=== PATIENT | female | born 1995 | race African-American/Black ===

== ENCOUNTER 2020-07-25 12:47 | Outpatient (REF) | payer OTHER, SELFPAY | END 2020-07-25 12:48 | disposition home or self-care (01) | LOC: HO.LAB 12:47 | PROVIDERS: PCP Internal Medicine; Visit Provider Internal Medicine | DX: Z20.828 Contact with and (suspected) exposure to other viral communicable diseases (principal) | CPT/HCPCS: C9803; U0003 ==

== ENCOUNTER 2021-08-14 17:07 | Emergency (ER) | payer OTHER, SELFPAY ==
[2021-08-14 17:22] VITALS: BP 159/100; PULSE 95; RESP 18; TEMP 36.8; O2SAT 100; BMI 53.1
[2021-08-14 18:19] LABS: COVID-19 Test Positive (Negative); IDNOW Serial# 9DD0AD1C; Strep A Nucleic Acid Negative (Negative)
[2021-08-14 21:30] VITALS: BP 151/96; PULSE 100; RESP 22; TEMP 36.7; O2SAT 98
--- NOTE | 2021-08-14 22:00 | ED_ITS ---
HPI - URI/Sore Throat General Chief Complaint: Upper Respiratory Symptoms Stated Complaint: Flu like symptoms/Hives Time Seen by Provider: 08/14/21 22:00 Source: patient Mode of arrival: ambulatory Limitations: no limitations History of Present Illness HPI Narrative: This is a 26-year-old female past medical history hypertension presenting to the emergency department with nasal congestion, sore throat, ear discomfort x1 week. Patient tells me that the real reason she is here today is not because of those symptoms, but because around 3 am today she had hives. She took Benadryl, which made them go away. No hives at this time. However, she has an EpiPen which , she asked PCP for refill on this EpiPen and her PCP sent her to the emergency department for a refil. She tells me that the hives have resolved, she is not short of breath, nauseous or vomiting at this time. She tells me that she would like a refill for her EpiPen.No shortness of breath, chest pain, nausea, vomiting, diarrhea, weakness, dizziness,vision changes.Patient eating and drinking well. MD elicited complaint: nasal congestion Onset (ago): week(s) (1) Consistency: constant Severity: mild Able to tolerate fluids by mouth: Yes Exacerbating factors: nothing Relieving factors: nothing Associated symptoms: denies other symptoms Treatments prior to arrival: none Related Data Previous Rx's Medication Instructions Recorded epinephrine 0.3 mg/0.3 mL 0.3 mg (0.3 mL) IM Q4H PRN #2 ea 08/14/21 injection, auto-injector (EpiPen) Allergies Allergy/AdvReac Type Severity Reaction Status Date / Time No Known Allergies Allergy Verified 08/14/21 17:22 Review of Systems Review of Systems: Constitutional : positive Fever, positive Chills, positive fatigue, positive Malaise ENT/Mouth : positive sore throat, positive runny nose, positive ear pain Eyes: No Discharge Cardiovascular : No Chest Pain, No SOB Respiratory : No Cough, No Sputum Gastrointestinal : No Nausea, No Vomiting, No Diarrhea Genitourinary : No Dysuria, No Urinary Frequency Musculoskeletal : positive Myalgia Skin : No rash Neuro : No Headache Yes all other systems are reviewed and are negative PMFSH Past Medical History Attestation statement: The following information was validated with the patient. Source: old records reviewed and nursing notes reviewed Medical History Hypertension Social History Social History Advance Directives: No Advance Directives Information Provided: No Patient : No Physical Exam Vital Signs: Vital Signs: Last Vital Signs Temp 98.1 F 08/14/21 21:30 Pulse 100 08/14/21 21:30 Resp 22 H 08/14/21 21:30 BP 151/96 H 08/14/21 21:30 Pulse Ox 98 08/14/21 21:30 BMI result Body Mass Index 53.1 Vital signs are stable, patient is noted to be slightly hypertensive, and tachypneic however she is anxious. Appearance: Alert.? Oriented X3.? No acute distress.? Patient appears slightly anxious. Respirations nonlabored, no accessory muscle use. Head: Normocephalic, atraumatic, no step-offs or deformities Eyes: Pupils equal, round and reactive to light.? ENT: Pharynx normal.? Neck: Normal inspection.? Neck supple.? CVS: Normal heart rate and rhythm.? Pulses normal.? Respiratory: No respiratory distress.? Breath sounds normal.? Abdomen: Soft and nontender.? Skin: Skin warm and dry.? Normal skin color.? Normal skin turgor.? Extremities: No lower extremity edema.? No calf ttp. 5/5 strength to bilateral upper and lower extremities Back: No midline tenderness, no C-spine tenderness, full range of motion, no CVA tenderness bilaterally Neuro: Oriented X 3.? No motor deficit.? No sensory deficit. Course Reevaluation(s) Reevaluation #1: Patient is noted to be COVID positive.? Vital signs are stable however.? I have given patient strict return precautions.? I have educated on diagnosis and treatment plan.? I have given them red flag symptoms and have told him to return with new or worsening symptoms.? I have outlined these on their discharge. Unlikely that this is ACS, patient denies chest pain. Lungs are clear unlikely pneumonia. Patient's vital signs stable, patient is not tachycardic, tachypneic or hypoxic at this time, no calf tenderness to palpation, unlikely PE. Initially she was slighlty tachypnic secondary to anxiety. Time: 22:06 MDM - URI/Sore Throat MDM Narrative Medical decision making narrative: 2203 26 yo F pmhx htn presents to ED with covid like sx. PE benign Plan- covid test Medical Records Attestation: I reviewed the patient's medical records. Lab Data Attestation: I reviewed the patient's lab results. Labs: Lab Results 08/14/21 08/14/21 Range/Units 17:45 17:45 COVID-19 (AARON) Positive A (Negative) COVID-19 Clin Com See Note S. pyogenes GrpA MARCELLO Negative (Negative) Critical Care Time Critical Care Time Critical Care Time: No Discharge Plan Discharge Clinical Impression: COVID-19 Patient Disposition: Home, Self-Care Instructions: COVID-19 (Coronavirus Disease 2019) (ED) Additional Instructions: Take your medications as prescribed. If you were prescribed antibiotics today, it is important that you take your medication to their entirety, do not skip any doses, do not finish them early. Today you tested positive for COVID-19. Take Ibuprofen or Tylenol as needed for fevers or body aches. Quarantine for 7 days and ensure you wear a mask. After 7 days you should wear a mask for 3 days after that. Practice social distancing and good hand hygiene. Drink plenty of fluids. Follow-up with your primary care provider this week. Return to the emergency department with new or worsening symptoms. In case of emergency call 911 You can purchase a pulse oximeter from your local pharmacy or grocery store, and monitor your oxygen saturation if it goes below 94% you should return to the emergency department for further evaluation. I have sent an EpiPen to her pharmacy, please use as instructed and only use it and severe emergencies if you are feeling short of breath, or like you cannot breathe or like her throat is closing. If he use an EpiPen you must call 911 and be seen in the emergency department. Please follow-up with your liquefied petroleum gasfitter. If You Test Positive for COVID-19 (Isolate) Everyone, regardless of vaccination status. * Stay home for 5 days. * If you have no symptoms or your symptoms are resolving after 5 days, you can leave your house. * Continue to wear a mask around others for 5 additional days. If you have a fever, continue to stay home until your fever resolves. If You Were Exposed to Someone with COVID-19 (Quarantine) If you: Have been boosted OR Completed the primary series of Pfizer or Moderna vaccine within the last 6 months OR Completed the primary series of J&J vaccine within the last 2 months * Wear a mask around others for 10 days. * Test on day 5, if possible. If you develop symptoms get a test and stay home. If you: Completed the primary series of Pfizer or Moderna vaccine over 6?months ago and are not boosted OR Completed the primary series of J&J over 2 months ago and are not boosted OR Are unvaccinated * Stay home for 5 days. After that continue to wear a mask around others for 5 additional days. * If you can?t quarantine you must wear a mask for 10 days. * Test on day 5 if possible. If you develop symptoms get a test and stay home Prescriptions: New epinephrine [EpiPen] 0.3 mg/0.3 mL auto-injector 0.3 mg IM Q4H PRN (Reason: anaphylaxis) Qty: 2 RF: 0 Referrals: Physician,Unknown J [Primary Care Provider] - 2 days Stand Alone Forms: Work/School Release
== END 2021-08-14 22:32 | disposition home or self-care (01) ==
LOC: HO.ED 22:10
PROVIDERS: Emergency Provider Emergency Medicine
DX: U07.1 COVID-19 (principal); L50.9 Urticaria, unspecified; J02.9 Acute pharyngitis, unspecified; I10 Essential (primary) hypertension
CPT/HCPCS: 87635; 87651; 99283; 99284

== ENCOUNTER 2022-02-17 09:57 | Emergency (ER) | payer OTHER, SELFPAY ==
[2022-02-17 10:10] VITALS: BP 177/93; PULSE 85; RESP 18; TEMP 36.7; O2SAT 100; BMI 51.5
--- NOTE | 2022-02-17 12:32 | ED.GENADULT ---
HPI - General Adult General Chief complaint: Upper Respiratory Symptoms Stated complaint: sore throat body aches Time Seen by Provider: 02/17/22 11:24 Source: patient Mode of arrival: ambulatory Limitations: no limitations History of Present Illness HPI narrative: 27-year-old female history of tonsillitis presents to ED for sore throat and body pain for the past 3 days. Patient states this morning she tested negative for COVID, RSV and influenza. Patient denies any drooling, change in voice, neck swelling, chest pain, shortness of breath, coughing phlegm, or any recent dental work. Related Data Previous Rx's Medication Instructions Recorded epinephrine 0.3 mg/0.3 mL 0.3 mg (0.3 mL) IM Q4H PRN 08/14/21 injection, auto-injector (EpiPen) anaphylaxis #2 ea amoxicillin 875 mg-potassium 1 tab PO Q12H 10 days #20 tabs 02/17/22 clavulanate 125 mg tablet naproxen 500 mg tablet 500 mg PO BID PRN pain 10 days #20 02/17/22 tabs prednisone 20 mg tablet 40 mg PO DAILY 5 days #10 tabs 02/17/22 Allergies Allergy/AdvReac Type Severity Reaction Status Date / Time No Known Allergies Allergy Verified 08/14/21 17:22 Review of Systems Review of Systems: Sore throat and body aches Yes all other systems are reviewed and are negative [facility] Past Medical History Medical History Hypertension Social History Social History Advance Directives: No Advance Directives Information Provided: Yes Physical Exam ED Vital Signs: Vital Signs - 24 hr 02/17/22 10:10 Temperature 98.0 F Pulse Rate 85 Respiratory Rate 18 Blood Pressure 177/93 H Pulse Oximetry 100 Oxygen Delivery Method Room Air BMI result Body Mass Index 51.5 Const General: cooperative, healthy appearing, comfortable, no acute distress, well developed, alert, awake and Physically active Orientation/consciousness: oriented to time and patient oriented x3 HENMT Other: negative for signs of peritonsillar abscess Head: Yes normal to inspection, Yes No palpable skull fracture present, Yes normocephalic, Yes atraumatic and No abrasion Ears: hearing grossly normal bilaterally, external ears normal, TM's normal bilaterally, TM normal on the right, TM normal on the left, EAC's normal, mastoids normal and no periauricular adenopathy Throat: Yes abnormal tonsil ( left tonsil positive for exudates. Negative for signs of HEAD CONTROL CLERK), No uvula laterally displaced, No uvular edema and No cobblestoning Eyes General: appearance normal, both eyes and all related structures Neck Neck: Yes normal visual inspection, Yes full ROM, Yes no lymphadenopathy, Yes no meningeal signs, Yes trachea midline, Yes supple, No anterior neck swelling and No tender Chest Chest palpation & inspection: normal inspection of the chest and normal palpation of entire chest wall Resp Effort & Inspection: normal respiratory effort and able to speak in complete sentences Auscultation: clear to auscultation bilaterally Cardio Jugular venous distension: no JVD Heart sounds: S1 normal heart sound present and S2 normal heart sound present GI Inspection: Yes normal to inspection and No abdominal wall ecchymosis Palpation (GI): Soft to palpation, not firm, nontender, no guarding and not rigid General: No CVA tenderness and Yes no CVA tenderness Back/Spine/Pelvis Back: no CVA tenderness, No CVA tenderness and No back tenderness Skin General skin exam: no rashes or lesions noted and elasticity normal Neuro General: oriented to time, patient oriented x3, gait normal, tone normal and no meningeal signs Cranial nerves: Yes CN's II-XII intact bilaterally Extrem General: Yes normal to inspection and Yes full ROM Psych Appearance: grossly normal, well kempt and not disheveled Course Course Course Narrative: will order strep test. Reevaluation(s) Reevaluation #1: Patient's strep test came back negative. Due to history of tonsillitis will be discharged with antibiotics and will give steroids. Patient educated on mononuclosesis disease and informed possibilities she might have it and recommend no sport activities to prevent contact with the spleen for the next 2 weeks to prevent spleen rupture. Patient informed to follow-up primary care provider. Time: 13:12 Reevaluation #2: Patient called and informed that her mono test came back negative. Patient informed to continue taking her antibiotics and steroids. Time: 18:25 Medical Decision Making MDM Narrative Medical decision making narrative: Tonsillitis Lab Data Labs: Lab Results 02/17/22 02/17/22 Range/Units 12:19 13:32 Monoscreen Negative (Negative) S. pyogenes GrpA MARCELLO Negative (Negative) Discharge Plan Discharge Clinical Impression: Tonsillitis Patient Disposition: Home, Self-Care Instructions: Tonsillitis (ED) Additional Instructions: return to the ED immediately for any drooling, change in voice, inability to tolerate solid foods/liquids, inability to talk, jaw stiffness, chest pain, shortness of breath, fever, chills, weakness, dizziness, worsening sore throat, or any other concerning symptoms. Please follow up with PCP Prescriptions: New amoxicillin-pot clavulanate 875-125 mg tablet 1 tab PO Q12H 10 Days Qty: 20 0RF prednisone 20 mg tablet 40 mg PO DAILY 5 Days Qty: 10 0RF naproxen 500 mg tablet 500 mg PO BID PRN (Reason: pain) 10 Days Qty: 20 0RF No Action epinephrine [EpiPen] 0.3 mg/0.3 mL auto-injector 0.3 mg IM Q4H PRN (Reason: anaphylaxis) Qty: 2 0RF Referrals: Essence Dewey MD [Primary Care Provider] - ( Tonsillitis) Stand Alone Forms: Work/School Release Interventions: ED Discharge Assessment Last Done: 02/17/22 13:38 Discharge Date/Time: 02/17/22 13:39 Print Language: Hungarian
[2022-02-17 12:36] LABS: Strep A Nucleic Acid Negative (Negative)
[2022-02-17 14:37] LABS: Monotest Negative (Negative)
== END 2022-02-17 13:39 | disposition home or self-care (01) ==
PROVIDERS: Physician Assistant; Emergency Provider Student in an Organized Health Care Education/Training Program; PCP Internal Medicine
DX: J03.90 Acute tonsillitis, unspecified (principal); M79.10 Myalgia, unspecified site; Z20.822 Contact with and (suspected) exposure to COVID-19; Z79.899 Other long term (current) drug therapy
CPT/HCPCS: 36415; 86308; 87651; 99283

== ENCOUNTER 2025-07-14 01:47 | Emergency (ER) | payer OTHER, SELFPAY ==
--- NOTE | ~2025-07-14 | XR_ITS ---
CLINICAL HISTORY: pain Right knee, 4 views COMPARISON: None provided FINDINGS: No acute fracture. No dislocation. No effusion. Unremarkable soft tissues. IMPRESSION: No acute findings. This document has been electronically signed by: Ezequiel Hyde MD on 07/14/2025 04:34:28
[2025-07-14 02:02] VITALS: BP 118/78; PULSE 99; RESP 18; TEMP 36.6; O2SAT 98; BMI 43.1
--- OUTSIDE RECORDS SUMMARY | 2025-07-14 02:18 | XMS_ITS | Encounter Summary ---
Author Organization [facility] Prior to 06/03/2024 Address [address] [place] [address] Care Team Providers Care Post Adoption Coordinator Name Role Phone Cary Posada MD Primary Care Provider Essence Marquez MD Primary Care Provider [phone] Encounter Details Date Type Department Care Team Description 06/10/2019 [employer] Gun[employer] Spotter Report Medical Records [address] [place] [id number] Gonzalez Whitten MD Social History Tobacco Use Types Packs/Day Years Used Date Smoking Tobacco: Light Smoker Cigarettes Started: 04/02/2014 Smokeless Tobacco: Never Comments:social said can sto p on own Alcohol Use Standard Drinks/Week Comments Yes 1 (1 standard drink = 0.6 oz pur e alcohol) socially- twice a month Sex Assigned at Date Recorded Not on file Job Start Date Occupation Industry Not on file Not on file Not on file documented as of this encounter Plan of Treatment Not on file documented as of this encounter Visit Diagnoses Not on filedocumented in this encounter Care Teams Post Adoption Coordinator Relationship Specialty Start Date End Date Cary Posada MD PCP - General Internal Medicine 01/26/18 02/17/21 Essence Dewey MD [address] [place] [address] PCP - General Internal Medicine 02/18/21 documented as of this encounter
--- OUTSIDE RECORDS SUMMARY | 2025-07-14 02:18 | XMS_ITS | Encounter Summary ---
Author Organization [facility] Prior to 06/03/2024 Address [address] [place] [address] Care Team Providers Care Salsa Dance Instructor Name Role Phone Alma Delia Dowell DO Primary Care Pro vider Unavailable Cray Posada MD Primary Care Provider Unavail Essence Monaco MD Primary Care Provider [phone] Encounter Details Date Type Department Care Team Description 05/12/2017 Copy Center Specialist Report Medical Records [address] [place] [address] Darion Lafleur Social History Tobacco Use Types Packs/Day Years Used Date Smoking Tobacco: Light Smoker Cigarettes Started: 04/02/2014 Comments:social Alcohol Use Standard Drinks/Week Comments Yes 1 [...] on filedocumented in this encounter Care Teams Salsa Dance Instructor Relationship Specialty Start Date End Date Alma Delia Dowell DO PCP - General Internal Medicine 02/19/15 01/25/18 Cary Posada MD PCP - General Internal Medicine 01/26/18 02/17/21 Essence Dewey MD [address] [place] [address] PCP - General Internal Medicine 02/18/21 documented as of this encounter
--- OUTSIDE RECORDS SUMMARY | 2025-07-14 02:18 | XMS_ITS | Encounter Summary ---
Author Organization [facility] Address [address] [place] [address] Care Team Providers Care Cartoonist Special Effects Name Role Phone Essence Dewey MD Primary Care Provider [phone] Reason for Visit * Reason Onset Date Comments Med Refill 06/13/2025 Zepbound 15 MG Encounter Details Date Type Department Care Team (Late Contact Info) Description 06/13/2025 Telephone Bariatric Surgery - [address] [place] [phone] Evette Stringer MD [address] [place] [phone] Social History Tobacco Use Types Packs/Day Years Used Date Smoking Tobacco: Every Day Cigarettes Smokeless Tobacco: Current Alcohol Use Standard Drinks/Week Comments Yes 1 (1 standard drink = 0.6 oz pur e alcohol) Comments Unknown Sex and Gender Information Value Date Recorded Sex Assigned at Not on file Legal Sex Female 2:16 AM EST Gender Identity Not on file Sexual Orientation Not on file documented as of this encounter Progress Notes * Betina Duggan - 06/13/2025 10:38 AM EST Patient did well on Zepbound 15 mgs and would like a refill. If appropriate, please send script for Zepbound 15 mgs to their pharmacy. The patient does have a follow up in 07/06/2025 documented in this encounter Plan of Treatment Upcoming Encounters Date Type Department Care Team (Late st Contact Info) Description 01/25/2026 10:45 AM EDT Office Visit Bariatric Surgery - [place] [address] [facility] [address] [place] [address] Evette Stringer MD [address] [place] [phone] documented as of this encounter Visit Diagnoses Not on filedocumented in this encounter Care Teams Cartoonist Special Effects Relationship Specialty Start Date End Date Essence Dewey MD [address] [place] [address] PCP - General Internal Medicine 02/18/21 documented as of this encounter
--- OUTSIDE RECORDS SUMMARY | 2025-07-14 02:18 | XMS_ITS | Patient Health Record ---
Author Organization [facility] Address [address] [place] [address] Care Team Providers Care Water Manager Name Role Phone MIRELLA NOGUERA Unavailable [phone] Allergies No Known Allergies Reason For Referral No Information Social History Tobacco Use: Social History Observation Description Date Details (start date - stop date) Current Smoker NA - NA Social History Drugs/Alcohol: Social Info Question Answer Notes Drugs Have you used drugs other than those for medical reasons in the past 12 months? No Tobacco Use: Social Info Question Answer Notes Tobacco Use/Smoking Are you a current smoker How often do you smoke cigarettes? every day How many cigarettes a day do you smoke? 11-20 Are you interested in quitting? Ready to quit Additional Details Category Social Info Options Details Drugs/Alcohol: Do you smoke marijuana? De nies Do you drink alcohol? 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 Problem Essential hypertension (27190902) Essential (primary) hypertension (I10) Active confirmed Problem Morbid obesity (828067243) Morbid obesity (E66.01) Active confirmed Problem Body mass index 40+ - morbidly obese (630826591) Body mass index [BMI] 50.0-59.9, adult (Z68.43) Active confirmed Problem Gastroesophageal reflux disease with esophagitis (disorder) (602697041) Gastroesophageal reflux disease with esophagitis without hemorrhage (K21.00) Active confirmed Plan Of Treatment No Information Insurance Providers Payer Name Payer Address Payer Phone Subscriber Number Group Number Insured Name Patient Relationship to Insured Coverage Start Date Coverage End Date [employer] [address] [place] [phone] [id number] Haydee Alvarado Self - patient is the insured Medications Administered Medication Instructions Date of Administration Dosage Notes MICC B12 INJECTION 09/10/2020 1 MICC B12 INJECTION 06/20/2021 lot # [id number] MICC B12 INJECTION 07/16/2021 MICC B12 INJECTION 10/14/2021 Lot # [id number] MICC B12 INJECTION 02/11/2022 lot # [id number] Medical (General) History Medical History History ICD Code hypertension seasonal allergies gastroesophageal reflux disease (GERD) acid reflux Surgical History Surgery Date(Month/Year) wisdom teeth extraction
--- OUTSIDE RECORDS SUMMARY | 2025-07-14 02:18 | XMS_ITS | Encounter Summary ---
Author Organization [facility] Prior to 06/03/2024 Address [address] [place] [address] Care Team Providers Care Billet Straightener Name Role Phone Cary Posada MD Primary Care Provider Essence Marquez MD Primary Care Provider [phone] Encounter Details Date Type Department Care Team Description 02/09/2019 Release of Information Medical Records [address] [place] [address] Abstract, Provider Social History Tobacco Use Types Packs/Day Years [...] on filedocumented in this encounter Care Teams Billet Straightener Relationship Specialty Start Date End Date Cary Posada MD PCP - General Internal Medicine 01/26/18 02/17/21 Essence Dewey MD [address] [place] [address] PCP - General Internal Medicine 02/18/21 documented as of this encounter
--- OUTSIDE RECORDS SUMMARY | 2025-07-14 02:18 | XMS_ITS | Encounter Summary ---
Author Organization [facility] Prior to 06/03/2024 Address [address] [place] [address] Care Team Providers Care Gerentological Physiotherapist Name Role Phone Essence Dewey MD Primary Care Provider [phone] Reason for Visit * Reason Onset Date Comments Appointment-Internal Referral 10/31/2021 Encounter Details Date Type Department Care Team Description 10/31/2021 Telephone General Surgery - [address] [place] [phone] Essence Dewey MD [address] [place] [phone] Appointment-Internal Referral Social History Tobacco Use Types Packs/Day Years Used Date Smoking Tobacco: Every Day Cigarettes 0.3 Smokeless Tobacco: Current Comments:started age 16; 1-3 cigarettes daily Alcohol Use Standard Drinks/Week Comments Yes 1 (1 standard drink = 0.6 oz pur e alcohol) occas Sex Assigned at Date Recorded Not on file Job Start Date Occupation Industry Not on file Not on file Not on file documented as of this encounter Miscellaneous Notes * Telephone Encounter - Imani Bravo - 11/08/2021 4:35 PM EDT Referral # [id number] Myke 12 visits 11/28/21 - 11/26/22 * Telephone Encounter - Betina Duggan - 10/31/2021 12:51 PM EDT Request for a referral to a [facility] Specialist for a patient with a [facility] PCP. If patient does NOT have a [facility] PCP they must obtain a referral from their PCP before being seen-do not submit request to Referrals department-contact patient. Specialty patient is being referred to: General Surgery Name of Specialist patient is seeing: Dr. Stringer Reason/diagnosis for visit: Bariatric consult Date of appoinment: 11/28/21 If retro, date referral needs to start: Essence Dewey Payor: [facility] / Plan: [employer] $25 Twist [id number] / Product Type: DmailerO [id number] documented in this encounter Plan of Treatment Not on file documented as of this encounter Visit Diagnoses Not on filedocumented in this encounter Care Teams Gerentological Physiotherapist Relationship Specialty Start Date End Date Essence Dewey MD [address] [place] [id number] PCP - General Internal Medicine 02/18/21 documented as of this encounter
--- OUTSIDE RECORDS SUMMARY | 2025-07-14 02:18 | XMS_ITS | Encounter Summary ---
Author Organization [facility] Prior to 06/03/2024 Address [address] [place] [address] Care Team Providers Care No Bake Molder Name Role Phone Essence Dewey MD Primary Care Provider [phone] Reason for Visit * Reason Onset Date Comments physical exam 09/28/2023 Encounter Details Date Type Department Care Team Description 09/28/2023 Telephone Bariatric Surgery - [address] [place] [address] Berta Bryant, ,RDN,LDN physical exam Social History Tobacco Use Types Packs/Day Years [...] encounter Miscellaneous Notes * Telephone Encounter - Claire Anne - 09/28/2023 12:14 PM EST Physical printed from [employer] and it's on my printer - I will upload to [employer] when I return to the office. * Telephone Encounter - Berta Bryant MS,KERRYN,LDN - 09/28/2023 10:24 AM EST Pt states she had physical in September 2023 through [employer]. Are you able to access through [employer]? Thanks! documented in this encounter Plan of Treatment Not on file documented as of this encounter Visit Diagnoses Not on filedocumented in this encounter Care Teams No Bake Molder Relationship Specialty Start Date End Date Essence Dewey MD [address] [place] [id number] PCP - General Internal Medicine 02/18/21 documented as of this encounter
--- OUTSIDE RECORDS SUMMARY | 2025-07-14 02:18 | XMS_ITS | Encounter Summary ---
Author Organization Erin [facility] Prior to 06/03/2024 Address [address] [place] [address] Care Team Providers Care [employer] Teacher Name Role Phone Alma Delia Dowell DO Primary Care Pro vider Unavailable Cary Posada MD Primary Care Provider Essence Marquez MD Primary Care Provider [phone] Reason for Visit * Reason Onset Date Comments Lump 10/21/2016 on neck Encounter Details Date Type Department Care Team Description 10/21/2016 Telephone Adult Medicine [address] [address] Alma Delia Dowell DO Lump (on neck) Social History Tobacco Use Types Packs/Day Years Used Date Smoking Tobacco: Light Smoker Comments:social Alcohol Use Standard Drinks/Week Comments Yes 0 (1 standard drink = 0.6 oz pur e alcohol) socially Sex Assigned at Date Recorded Not on file Job Start Date Occupation Industry Not on file Not on file Not on file documented as of this encounter Miscellaneous Notes * Telephone Encounter - Jessy Uribe L.P.N. - 10/21/2016 10:19 AM EDT Pt thinks she has a swollen gland behind her ear Has a cold Apt booked * Telephone Encounter - Jessy Uribe L.P.N. - 10/21/2016 9:20 AM EDT Message left on vm to call office at [phone] * Telephone Encounter - eMg Russell - 10/21/2016 8:40 AM EDT Symptoms patient is presenting: Pt states the last time she came here, she had a lump on her ear. She's now sick and another lump appeared on her neck. She was told to come back if it happened again.Pt is at work and requests to be called after 10. If pain or injury related was it due to an accident at work or from a motor vehicle accident? NO If yes, gather 3rd green party insurance information Date of accident/Injury: How long has patient had these symptoms?: 2 weeks PCP: Alma Delia Davila Payor: [employer] FFS / Plan: FFS HMO $0 [place] [id number] / Product Type: MEDICAID RISK documented in this encounter Plan of Treatment Not on file documented as of this encounter Visit Diagnoses Not on filedocumented in this encounter Care Teams [employer] Teacher Relationship Specialty Start Date End Date Alma Delia Dowell DO PCP - General Internal Medicine 02/19/15 01/25/18 Cary Posada MD PCP - General Internal Medicine 01/26/18 02/17/21 Essence Dewey MD [address] [place] [phone] PCP - General Internal Medicine 02/18/21 documented as of this encounter
--- OUTSIDE RECORDS SUMMARY | 2025-07-14 02:19 | XMS_ITS | Clinical Summary ---
Author Organization [address] [facility] Address [address] [place] [address] Phone Care Team Providers Care Glass Vial Filler Name Role Phone Essence Dewey MD Primary Care Provider [phone] Allergies Active Allergy Reactions Criticality Noted Date Comments Amlodipine-Benazepril Headache 07/21/2024 Cat Dander 07/21/2024 Dog Dander 07/21/2024 Grass Pollen 07/21/2024 House Dust 07/21/2024 Mold 07/21/2024 Other Headache Low 08/28/2020 Amlodipine Kdc: Red Dye+Amlodipine+Benazepril+Bril liant Blue Fcf Headache and nausea Ragweed 07/21/2024 Medications buPROPion XL (WELLBUTRIN XL) 150 mg 24 hr tablet Take 1 Tablet by mouth every morning for 30 days. 3 Active cetirizine (ZyrTEC) 10 mg capsule Take 10 mg by mouth daily. 5 Active cholecalciferol (VITAMIN D-3) 1,250 mcg (50,000 unit) capsule Take 1 Capsule by mouth once a week. 2 Active dapsone (ACZONE) 5 % topical gel Apply pea size amount BID 1 Active fluticasone propionate (FLONASE) 50 mcg/actuation nasal spray 2 Sprays by Each Nare route daily. Active norethindrone (ANAMARIA,AMBIKA,H ECTOR,MICRONOR ) 0.35 mg tablet Take 1 Tablet by mouth daily. 2 Active sulfacetamide sodium 10 % cleanser Wash face 1 x daily 12/01/202 1 Active multivitamin with minerals tabletIndicatio ns:Weight loss Take 1 tablet by mouth 1 (one) time each day. 30 tablet 11 5 02/09/20 26 Active multivitamin-mi u-nkun-ER-vit K (Bariatric Multivitamins) 45 mg iron- 800 mcg-120 mcg capsuleIndicati ons:Weight loss Take 1 capsule by mouth 1 (one) time each day. 90 capsule 1 5 09/04/19 26 Active tirzepatide, weight loss, (Zepbound) 15 mg/0.5 mL injectionIndica tions:Class 3 severe obesity due to excess calories with body mass index (BMI) of 40.0 to 44.9 in adult, unspecified whether serious comorbidity present (CMS/HCC V24, CMS/HCC V28) Inject 0.5 mL (15 mg total) under the skin every 7 (seven) days. 2 mL 5 5 01/03/20 26 Active minoxidiL (Rogaine) 2 % external solutionIndicat ions:Weight loss Apply topically 2 (two) times a day. 60 mL 2 5 07/06/20 26 Active ergocalciferol (VITAMIN D-2) 1,250 mcg (50,000 unit) capsuleIndicati ons:Vitamin D deficiency Take 1 capsule (50,000 Units total) by mouth 1 (one) time per week for 12 doses. 12 each 5 09/22/19 26 Active minoxidiL (Rogaine) 2 % external solutionIndicat ions:Weight loss Apply topically 2 (two) times a day. 60 mL 5 07/06/20 25 Discontinu ed(Reorder ) tirzepatide, weight loss, (Zepbound) 15 mg/0.5 mL injection Inject 0.5 mL (15 mg total) under the skin every 7 (seven) days. 2 mL 5 06/17/20 25 Discontinu ed(Reorder ) tirzepatide, weight loss, (Zepbound) 15 mg/0.5 mL injectionIndica tions:Class 3 severe obesity due to excess calories with body mass index (BMI) of 50.0 to 59.9 in adult, unspecified whether serious comorbidity present (CMS/HCC V24, CMS/HCC V28) Inject 0.5 mL (15 mg total) under the skin every 7 (seven) days. 2 mL 5 5 07/06/20 25 Discontinu ed(Reorder ) Active Problems Problem Noted Date Diagnosed Date Class 3 severe obesity due t o excess calories with body mass index (BMI) of 50.0 to 59.9 in adult 05/03/2024 Hirsutism 09/19/2020 PCOS (polycystic ovarian syndrome) 09/19/2020 Proteinuria 09/10/2020 Hypertension 09/03/2020 COVID-19 virus infection 07/23/2020 Overview (05/03/2024): 07/2020 per patient Urticaria 07/23/2020 Encounters Date Type Department Care Team Description 07/06/2025 4:15 PM EST Office Visit Bariatric Surgery [address] [address] Evette Stringer MD Class 3 severe obesity due to excess calories with body mass index (BMI) of 40.0 to 44.9 in adult, unspecified whether serious comorbidity present (CMS/HCC V24, CMS/HCC V28) (Primary Dx); Class 3 severe obesity due to excess calories with body mass index (BMI) of 50.0 to 59.9 in adult, unspecified whether serious comorbidity present (CMS/HCC V24, CMS/HCC V28); Weight loss; Vitamin D deficiency 07/03/2025 9:45 AM EST Lab Draw Station - [address] [place] [address] [address] [place] [phone] Weight loss 06/13/2025 Telephone Bariatric Surgery [address] [phone] Evette Stringer MD 05/15/2025 Telephone Bariatric Surgery [address] [phone] Evette Stringer MD from Last 3 Months Immunizations Immunization Administration Dates Next Due DTP 1996,1996 DTaP (Infanrix) 6wks to less than 7yo 12/16/2000 ,05/18/1997,1996 ZJaE-QIP-XMB (Pentacel) 2mo to less than 5yo 05/18/1997,1996,1996,04/14 HPV, Quadrivalent 04/24/2008,12/20/2007,10/20/19 08 Hepatitis B Pediatric (Enger ix B; Recombivax HB) to less than 20 yo 1996,1996,1996 MMR, measles mumps and rubel la Live (Priorix; M-M-R II) 12mo and older 12/16/2000,02/24/1997 Meningococcal MCV4P 10/15/2012,10/20/2007 Moderna SARS-CoV-2 COVID-19, mRNA, LNP-S, preservative free 01/24/2021 Tdap Tetanus diptheria acell ular pertussis (Boostrix; Adacel) 7yo and older 01/31/2016,10/20/2007 Varicella live (Varivax) 12m o and older 10/20/2007,02/14/1999 Surgical History Surgery Date Site/Laterality Comments WISDOM TOOTH EXTRACTION PROCEDURE: HISTORICAL WISDOM TEETH EXTRACTION Medical History Medical History Date Comments Morbid obesity ([facility]/HCC V24, [facility] V28) 04/05/20 15 DX:Morbid obesity (HCC) Iron deficiency anemia DX:Iron d eficiency anemia Family History Medical History Relation Name Comments Hypertension Father kidney disease Diabetes Maternal Grandmother Hyperlipidemia Mother HLD Hypertension Sister x 2 Relation Name Status Comments Brother x 1 Alive Father Alive Maternal Grandfather Maternal Grandmother Alive Mother Alive Paternal Grandfather Alive Paternal Grandmother Alive Sister x 2 Alive Social History Tobacco Use Types Packs/Day Years [...] on file Sexual Orientation Not on file Last Filed Vital Signs Vital Sign Reading Time Taken Comments Blood Pressure 128/83 07/06/2025 4:16 PM EST Pulse 92 07/06/2025 4:16 PM EST Temperature 36.6 C (97.8 F) 07/06/2025 4:16 PM EST Respiratory Rate - - Oxygen Saturation - - Inhaled Oxygen Concentration - - Weight 118 kg (260 lb) 07/06/2025 4:16 PM EST Height 162.6 cm (5' 4 ) 07/06/2025 4:16 PM EST Body Mass Index 44.63 07/06/2025 4:16 PM EST Plan of Treatment Upcoming Encounters Date Type Department Care Team (Late st Contact Info) Description 01/25/2026 10:45 AM EDT Office Visit Bariatric Surgery - [address] [place] [address] Evette Stringer MD [address] [place] [phone] Health Maintenance Due Date Last Done Comments Pneumococcal Vaccine: Pediatrics (0 to 5 Years) and At-Risk Patients (6 to 49 Years) (1 of 2 - PCV) 02/11/2015 Cervical Cancer Screening: Pap Smear 03/08/2022 03/08/2019, 03/08/2019 Social Influencers of Health Screening 07/12/2022 Hypertension/CHF/CAD Annual BMP Blood Test 01/14/2023 01/14/2022 Depression Screening 08/03/2024 05/21/2023 COVID-19 Vaccine ( - season) 2025 02/21/2021, 01/24/2021 Influenza Vaccine (#1) 2025 DTaP,Tdap,and Td Vaccines (8 - Td or Tdap) 01/30/2026 01/31/2016, 10/20/2007, 12/16/2000, Additional history exists Cholesterol Screening (Lipid Panel) 01/14/2027 01/14/2022 RSV Immunization Adult Patients (1 - 1-dose 75+ series) 02/11/2071 Hepatitis B Vaccines Completed 1996, 1996, 1996 HIB Vaccines Completed 05/18/1997, 08/04, 1996, Additional history exists IPV Vaccines Completed 05/18/1997, 08/04, 1996, Additional history exists MMR Vaccines Completed 12/16/2000, 02/24/1997 Varicella Vaccines Completed 10/20/2007, 02/14/1999 HPV Vaccines Completed 04/24/2008, 12/01, 10/20/2007 Meningococcal ACWY Vaccine Completed 10/15/2012, HIV Screening Completed 08/27/2020 Hepatitis C Screening Completed 08/27/2020 Hepatitis A Vaccines Aged Out No long er eligible based on patient's age to complete this topic Meningococcal B Vaccine Aged Out No l onger eligible based on patient's age to complete this topic RSV Immunization Patients Under 20 months Aged Out No longer eligible based on patient's age to complete this topic Procedures Procedure Name Priority Date/Time Associated Diagnosis Comments ALBUMIN Routine 07/03/2025 9:45 AM EST Weight loss VITAMIN B12 Routine 07/03/2025 9:45 AM EST Weight loss IRON AND TIBC Routine 07/03/2025 9:45 AM EST Weight loss VITAMIN D 25 HYDROXY Routine 07/03/2025 9:45 AM EST Weight loss DEPRESSION SCREENING Routine 05/21/2023 ANNUAL BMP BLOOD TEST Routine 01/14/2022 LIPID PANEL Routine 01/14/2022 HEPATITIS C SCREENING Routine 08/27/2020 HIV SCREENING Routine 08/27/2020 PAP SMEAR Routine 03/08/2019 from Last 3 Months or Most Recently Relevant to Health Maintenance Results * Iron and TIBC (07/03/2025 9:45 AM EST) Iron 88 40 - 150 mcg/dL 07/03/2025 2:49 PM EST [facility] TIBC 275 250 - 450 mcg/dL 07/03/2025 2:49 PM EST [facility] Iron Saturation 32 15 - 50 % 2:49 PM EST [facility] Blood Venous blood specimen / Unknown Venipuncture / Unknown 07/03/2025 9:45 AM EST 07/03/2025 9:45 AM EST us Evette Stringer MD LAB BLOOD ORDERABLES Final R esult Performing Organization Address City/[facility]/ZIP Co de Phone Number [facility] [address] [place] [address], [place] [phone] * (ABNORMAL) Vitamin D 25 hydroxy (07/03/2025 9:45 AM EST) Vit D, 25-Hydroxy 26.5(L) 30.0 - 80.0 ng/mL 07/03/2025 2:54 PM EST [facility] Blood Venous blood specimen / Unknown Venipuncture / Unknown 07/03/2025 9:45 AM EST 07/03/2025 9:45 AM EST us Evette Stringer MD LAB BLOOD ORDERABLES Final R esult Performing Organization Address City/[facility]/ZIP Co de Phone Number [facility] [address] [place] [address], [place] [phone] * Vitamin B12 (07/03/2025 9:45 AM EST) Vitamin B-12 428 211 - 911 pcg/mL 07/03/2025 2:56 PM EST [facility] Blood Venous blood specimen / Unknown Venipuncture / Unknown 07/03/2025 9:45 AM EST 07/03/2025 9:45 AM EST us Evette Stringer MD LAB BLOOD ORDERABLES Final R esult [facility] [address] [place] [address], [place] [phone] * Albumin (07/03/2025 9:45 AM EST) [facility] Albumin 4.3 3.2 - 5.0 g/dL 07/03/2025 2:49 PM EST [facility] Blood Venous blood specimen / Unknown Venipuncture / Unknown 07/03/2025 9:45 AM EST 07/03/2025 9:45 AM EST Evette Stringer MD LAB BLOOD ORDERABLES Final R esult Performing Organization Address City/State/[facility] Co de Phone Number [facility] [address] [place] [address], [place] [phone] * Depression Screening (05/21/2023) [facility] Depression Screening Abstracted [facility] Provider HEALTH MAINTENANCE Final Result * Annual BMP Blood Test (01/14/2022) [facility] Annual BMP Blood Test Abstracted [facility] Provider HEALTH MAINTENANCE Final Result * Lipid panel (01/14/2022) [facility] LDL/HDL Ratio 3 0 - 4 Triglycerides 112 0 - 150 mg/dL Cholesterol 184 0 - 200 mg/dL HDL 73 >=40 mg/dL LDL Cholesterol 89 0 - 100 mg/dL Blood Venous blood specimen / Unknown Historical Provider LAB BLOOD ORDERABLES Ale l Result * HIV Screening (08/27/2020) [facility] HIV Screening Abstracted [facility] Provider HEALTH MAINTENANCE Final Result * Hepatitis C Screening (08/27/2020) [facility] Hepatitis C Screening Abstracted Historical Provider HEALTH MAINTENANCE Final Result * Pap smear (03/08/2019) 03/08/2019 Narrative HISTORICAL TESTING LAB RESULTING AGENCY - 03/10/2019 5:00 PM EDT [id number] THINPREP PAP, IMAGED: NEGATIVE FOR SQUAMOUS INTRAEPITHELIAL LESION AND MALIGNANCY . JOHNNY VOSS , JEANMARIE(ASCP) (CASE ELECTRONICALLY SIGNED 03 10 2019) ADEQUACY: SATISFACTORY ENDOCERVICAL/TRANSFORMATION ZONE COMPONENT PRESENT. SOURCE: THINPREP PAP HPV IF ASCUS, CERVICAL, IMAGED CLINICAL INFORMATION: HPV IF DIAGNOSIS OF ASCUS. PAP HX NEG, Z12.4 us Pablo Aguilera CNM LAB CYTOLOGY ORDERABLES Final Result HISTORICAL TESTING LAB RESULTING AGENCY from Last 3 Months or Most Recently Relevant to Health Maintenance Insurance [facility] Care Teams Glass Vial Filler Relationship Specialty Start Date End Date Essence Dewey MD [address] [place] [address] PCP - General Internal Medicine 02/18/21
--- OUTSIDE RECORDS SUMMARY | 2025-07-14 02:19 | XMS_ITS | Encounter Summary ---
Author Organization [facility] Prior to 06/03/2024 Address [address] [place] [address] Care Team Providers Care Cement Cutter Name Role Phone Cary Posada MD Primary Care Provider Essence Marquez MD Primary Care Provider [phone] Encounter Details Date Type Department Care Team Description 10/26/2020 [place] [facility] [address] [address] Marquita Santamaria PA-C Social History Tobacco Use Types Packs/Day Years Used Date Smoking Tobacco: Every Day Cigarettes Smokeless Tobacco: Current Comments:started age 16; 1-3 cigarettes daily Alcohol Use Standard Drinks/Week Comments Yes 1 (1 standard drink = 0.6 oz pur e alcohol) Sex Assigned at Date Recorded Not on file Job Start Date Occupation Industry Not on file Not on file Not on file COVID-19 Exposure Response Date Recorded In the last month, have you been in contact with someone who was confirmed or suspected to have Coronavirus / COVID-19? No / Unsure 10/29/2020 1:19 PM EDT documented as of this encounter Plan of Treatment Not on file documented as of this encounter Visit Diagnoses Not on filedocumented in this encounter Care Teams Cement Cutter Relationship Specialty Start Date End Date Cary Posada MD PCP - General Internal Medicine 01/26/18 02/17/21 Essence Dewey MD [address] [place] [phone] PCP - General Internal Medicine 02/18/21 documented as of this encounter
--- OUTSIDE RECORDS SUMMARY | 2025-07-14 02:19 | XMS_ITS | Encounter Summary ---
Author Organization Erin [employer] [facility] Prior to 06/03/2024 Address [address] [place] [address] Care Team Providers Care Belt Notcher Name Role Phone Cary Posada MD Primary Care Provider Essence Marquez MD Primary Care Provider [phone] Encounter Details Date Type Department Care Team Description 11/28/2019 Pt. Non Urgent Medical Question BLEACH TESTER - [address] [address] Pablo Aguilera CNM [address] [place] [address] Social History Tobacco Use Types Packs/Day Years Used Date Smoking Tobacco: Light Smoker Cigarettes Started: 04/02/2014 Smokeless Tobacco: Never Comments:1-2 cigarettes ruben y Alcohol Use Standard Drinks/Week Comments Yes 1 (1 standard drink = 0.6 oz pur e alcohol) socially- twice a month Sex Assigned at Date Recorded Not on file Job Start Date Occupation Industry Not on file Not on file Not on file documented as of this encounter Miscellaneous Notes * Telephone Encounter - Yumiko Serrato R.N. - 11/28/2019 4:40 PM EDTFrom: Haydee Alvarado To: Pablo Aguilera CNM Sent: 11/28/2019 4:35 PM EDT Subject: Possible Yeast infection Hi Doc , I have had yeast infection before a couple times , I'm very red and itchy and burning downin my vaginal area , I don't if you can send a prescription in or I can come in .. please reach back documented in this encounter Plan of Treatment Not on file documented as of this encounter Visit Diagnoses Not on filedocumented in this encounter Care Teams Belt Notcher Relationship Specialty Start Date End Date Cary Posada MD PCP - General Internal Medicine 01/26/18 02/17/21 Essence Dewey MD [address] [place] [phone] PCP - General Internal Medicine 02/18/21 documented as of this encounter
--- OUTSIDE RECORDS SUMMARY | 2025-07-14 02:19 | XMS_ITS | Encounter Summary ---
Author Organization Erin [employer] [facility] Prior to 06/03/2024 Address [address] [place] [address] Care Team Providers Care Timber Incisor Operator Name Role Phone Alma Delia Dowell DO Primary Care Pro vider Unavailable Cary Posada MD Primary Care Provider Unavail Essence Monaco MD Primary Care Provider [phone] Encounter Details Date Type Department Care Team Description 03/27/2015 Release of Information Medical Records [address] [place] [id number] Abstract, Provider Social History Tobacco Use Types Packs/Day Years Used Date Smoking Tobacco: Never Alcohol Use Standard Drinks/Week Comments Not Asked 0 (1 standard drink = 0.6 oz pur e alcohol) Sex Assigned at Date Recorded Not on file Job Start Date Occupation Industry Not on file Not on file Not on file documented as of this encounter Plan of Treatment Not on file documented as of this encounter Visit Diagnoses Not on filedocumented in this encounter Care Teams Timber Incisor Operator Relationship Specialty Start Date End Date Alma Delia Dowell DO PCP - General Internal Medicine 02/19/15 01/25/18 Cary Posada MD PCP - General Internal Medicine 01/26/18 02/17/21 Essence Dewey MD [address] [place] [phone] PCP - General Internal Medicine 02/18/21 documented as of this encounter
--- OUTSIDE RECORDS SUMMARY | 2025-07-14 02:19 | XMS_ITS ---
Author Name [facility] Organization Unknown Care Team Organization Name Specialty Phone Email Start Date End Da gage [facility] Cary Sanchez Primary Care 06/10/2022 024
--- OUTSIDE RECORDS SUMMARY | 2025-07-14 02:19 | XMS_ITS | Encounter Summary ---
Author Organization [facility] Prior to 06/03/2024 Address [address] [place] [address] Care Team Providers Care Cognos Tm1 Developer Name Role Phone Cary Posada MD Primary Care Provider Essence Marquez MD Primary Care Provider [phone] Encounter Details Date Type Department Care Team Description 10/30/2020 Pt. Non Urgent Medical Question [facility] [place] [address] [place] [address] Lyn Nunes PA-C [address] [place] [address] Social History Tobacco Use Types Packs/Day Years [...] have Coronavirus / COVID-19? No / Unsure 11/01/2020 11:01 AM EDT documented as of this encounter Miscellaneous Notes * Telephone Encounter - Jaylene Vernon M.A. - 10/30/2020 1:50 PM EDTFrom: Haydee Alvarado To: Lyn Nunes PA-C Sent: 10/30/2020 1:14 PM EDT Subject: Question regarding ULTRASOUND OF PELVIS I have a question about ULTRASOUND OF PELVIS resulted on 10/29/20, 6:13 PM. Is there is anything we can do about the cyst because I'm in pain documented in this encounter Plan of Treatment Not on file documented as of this encounter Visit Diagnoses Not on filedocumented in this encounter Care Teams C[employer]os Tm1 Developer Relationship Specialty Start Date End Date Cary Posada MD PCP - General Internal Medicine 01/26/18 02/17/21 Essence Dewey MD [address] [place] [address] PCP - General Internal Medicine 02/18/21 documented as of this encounter
--- OUTSIDE RECORDS SUMMARY | 2025-07-14 02:19 | XMS_ITS | Encounter Summary ---
Author Organization [facility] Prior to 06/03/2024 Address [address] [place] [address] Care Team Providers Care Software Systems Engineer Name Role Phone Cary Posada MD Primary Care Provider Essence Marquez MD Primary Care Provider [phone] Encounter Details Date Type Department Care Team Description 01/08/2020 Pt. Non Urgent Medical Question HOTEL FRONT OFFICE MANAGER - [address] [address] Pablo Aguilera CNM [address] [place] [address] Social History Tobacco Use Types Packs/Day Years [...] Telephone Encounter - Yumiko Serrato R.N. - 01/09/2020 8:24 AM EDTFrom: Haydee Alvarado To: Pablo Aguilera CNM Sent: 01/08/2020 9:50 AM EDT Subject: Periods Hey , my periods been lasting very long again and wanted to know what we can do ? Or if I can come for a appointment? documented in this encounter Plan of Treatment Not on file documented as of this encounter Visit Diagnoses Not on filedocumented in this encounter Care Teams Software Systems Engineer Relationship Specialty Start Date End Date Cary Posada MD PCP - General Internal Medicine 01/26/18 02/17/21 Essence Dewey MD [address] [place], [place] [phone] PCP - General Internal Medicine 02/18/21 documented as of this encounter
--- OUTSIDE RECORDS SUMMARY | 2025-07-14 02:19 | XMS_ITS | Encounter Summary ---
Author Organization [facility] Prior to 06/03/2024 Address [address] [place] [address] Care Team Providers Care Technical Instructor Course Developer Name Role Phone Cary Posada MD Primary Care Provider Essence Marquez MD Primary Care Provider [phone] Encounter Details Date Type Department Care Team Description 01/24/2021 Pt. Non Urgent Medical Question Adult Medicine [address] [address] Betina Mesa PA-C Social History Tobacco Use Types Packs/Day [...] have Coronavirus / COVID-19? No / Unsure 01/23/2021 3:09 PM EDT documented as of this encounter Miscellaneous Notes * Telephone Encounter - Justine Villanueva M.A. - 01/24/2021 9:02 AM EDTFrom: Haydee Alvarado To: Jan Mesa Sent: 01/24/2021 8:23 AM EDT Subject: Question regarding BLOOD TEST PANEL - BMP I just don???t understand what these labs mean documented in this encounter Plan of Treatment Not on file documented as of this encounter Visit Diagnoses Not on filedocumented in this encounter Care Teams Technical Instructor Course Developer Relationship Specialty Start Date End Date Cary Posada MD PCP - General Internal Medicine 01/26/18 02/17/21 Essence Dewey MD [address] [place] [id number] PCP - General Internal Medicine 02/18/21 documented as of this encounter
--- OUTSIDE RECORDS SUMMARY | 2025-07-14 02:19 | XMS_ITS | Encounter Summary ---
Author Organization [facility] Prior to 06/03/2024 Address [address] [place] [address] Care Team Providers Care Strain Technician Name Role Phone Essence Dewey MD Primary Care Provider [phone] Reason for Visit * Reason Onset Date Comments Material Handling Technician Feedback 06/28/2021 Jeremie Addison Encounter Details Date Type Department Care Team Description 06/28/2021 Telephone Adult Medicine [address] [address] Essence Dewey MD [address] [place] [id number] Material Handling Technician Feedback (Armando Clrak, Internal Derm) Social History Tobacco Use Types Packs/Day Years [...] encounter Miscellaneous Notes * Telephone Encounter - Stacy Orozco - 06/28/2021 4:42 PM EST Patient is all set; referral is authorized and assigned to the correct provider. documented in this encounter Plan of Treatment Not on file documented as of this encounter Visit Diagnoses Not on filedocumented in this encounter Care Teams Strain Technician Relationship Specialty Start Date End Date Essence Dewey MD [address] [place] [id number] PCP - General Internal Medicine 02/18/21 documented as of this encounter
--- OUTSIDE RECORDS SUMMARY | 2025-07-14 02:19 | XMS_ITS | Encounter Summary ---
Author Organization [facility] Prior to 06/03/2024 Address [address] [place] [address] Care Team Providers Care Disciplinary Hearing Officer Name Role Phone Cary Posada MD Primary Care Provider Essence Marquez MD Primary Care Provider [phone] Encounter Details Date Type Department Care Team Description 02/26/2020 Pt. Non Urgent Medical Question INTERNET APPLICATION DEVELOPER - [address] [address] Pablo Aguilera CNM [address] [place] [id number] Social History Tobacco Use Types Packs/Day Years [...] Telephone Encounter - Yumiko Serrato R.N. - 02/27/2020 8:19 AM EDTFrom: Haydee Alvarado To: Pablo Aguilera CNM Sent: 02/26/2020 5:46 PM EDT Subject: control Hi , I have no more refills on my control and the pharmacy has sent over several request . documented in this encounter Plan of Treatment Not on file documented as of this encounter Visit Diagnoses Not on filedocumented in this encounter Care Teams Disciplinary Hearing Officer Relationship Specialty Start Date End Date Cary Posada MD PCP - General Internal Medicine 01/26/18 02/17/21 Essence Dewey MD [address] [place] [id number] PCP - General Internal Medicine 02/18/21 documented as of this encounter
--- OUTSIDE RECORDS SUMMARY | 2025-07-14 02:19 | XMS_ITS | Encounter Summary ---
Author Organization [facility] Prior to 06/03/2024 Address [address] [place] [address] Care Team Providers Care Steel Finisher Name Role Phone Cary Posada MD Primary Care Provider Essence Marquez MD Primary Care Provider [phone] Encounter Details Date Type Department Care Team Description 01/24/2021 Pt. Non Urgent Medical Question Adult Medicine [address] [address] Betina Mesa PA-C Social History Tobacco Use [...] Encounter - Justine Villanueva M.A. - 01/24/2021 9:01 AM EDTFrom: Haydee Alvarado To: Jan Mesa Sent: 01/24/2021 8:22 AM EDT Subject: Question regarding COMPLETE BLOOD COUNT Can you explain these labs documented in this encounter Plan of Treatment Not on file documented as of this encounter Visit Diagnoses Not on filedocumented in this encounter Care Teams Steel Finisher Relationship Specialty Start Date End Date Cary Posada MD PCP - General Internal Medicine 01/26/18 02/17/21 Essence Dewey MD [address] [place] [id number] PCP - General Internal Medicine 02/18/21 documented as of this encounter
--- NOTE | 2025-07-14 04:42 | ED_ITS ---
HPI - General Adult General Chief complaint: Extremity Injury, Lower Stated complaint: knee injury Time Seen by Provider: 07/14/25 03:10 Source: patient Limitations: no limitations History of Present Illness ED Provider: Jenni Caballero PA-C HPI narrative: 30-year-old female presents with atraumatic right knee pain x3 days. Patient states she is on her feet quite a bit at work, performing physical tasks on a re gular basis. There was no new trauma, new exercise or heavy lifting that could have precipitated symptoms. Denies redness, swelling or warmth of the joint. Pain worse with the attempts to flex the knee and with lateral movement. Related Data Previous Rx's ?Medication ?Instructions ?Recorded epinephrine 0.3 mg/0.3 mL 0.3 mg (0.3 mL) IM Q4H PRN 0 08/14/21 injection, auto-injector (EpiPen) anaphylaxis #2 ea amoxicillin 875 mg-potassium 1 tab PO Q12H 10 days #20 tabs 02/17/22 clavulanate 125 mg tablet naproxen 500 mg tablet 500 mg PO BID PRN pain 10 da ys #20 02/17/22 tabs prednisone 20 mg tablet 40 mg (2 x 20 mg) PO DAILY 5 days 02/17/22 #10 tabs ketorolac 10 mg tablet 10 mg PO Q6H PRN pain #20 ta bs 07/14/25 Allergies Allergy/AdvReac Type Severity Reaction Status Date / Time amlodipine AdvReac Headache Verified 07/14/25 02:05 Review of Systems Review of Systems: Yes all other systems are reviewed and are negative Constitutional: Constitutional: Denies fatigue and Denies fever(s) Musculoskeletal: Musculoskeletal: Reports arthralgias and Denies joint swelling Endocrine: Endocrine: Denies fatigue [facility] Past Medical History Attestation statement: The following information was validated with the patient. Medical History Hypertension Social History Social History Advance Directives: No Advance Directives Information Provided: Yes Physical Exam ED Vital Signs: Vital Signs - 24 hr 07/14/25 02:02 Temperature 97.9 F Pulse Rate 99 Respiratory Rate 18 Blood Pressure 118/78 Pulse Oximetry 98 Oxygen Delivery Method Room Air BMI result Body Mass Index 43.1 Const Other: Alert well-appearing Orientation/consciousness: patient oriented x3 Resp Effort & Inspection: normal respiratory effort Cardio Other: Normal peripheral perfusion Skin Other: Warm dry no rash Neuro General: patient oriented x3, gait normal, no focal motor deficits and CN's II-X I intact bilaterally Extrem Other: Full flexion and extension of the right knee no swelling noted Psych Other: Cooperative Medical Decision Making Medical Decision Making [facility] Narrative: 30-year-old female presents with atraumatic right knee pain x3 days. Patient states she is on her feet quite a bit at work, performing physical tasks on a regular basis. There was no new trauma, new exercise or heavy lifting that could have precipitated symptoms. Denies redness, swelling or warmth of the joint. Pain worse with the attempts to flex the knee and with lateral movement. No chronic issues History: Per patient I have considered the following differential diagnoses: Sprain, strain, septic effusion, arthritis, fracture, dislocation Plan: X-ray ordered from triage it is unremarkable. We will treat as a mild sprain, and give contact for orthopedic service to be used as needed. Patient has full flexion and extension, no redness or warmth, to suggest septic joint. I have independently reviewed the following tests: X-ray right knee:FINDINGS: No acute fracture. No dislocation. No effusion. Unremarkable soft tissues. IMPRESSION: No acute findings. Differential Diagnosis Differential Diagnoses: The differential diagnosis associated with the presentation includes See [facility] Admission/Observation Consideration of admission/observation: Escalation of care including admission/observation considered Not applicable Radiology Impression Discussion of test interpretation with radiology: I have reviewed the radiologist's reading. Discharge Plan Discharge Clinical Impression: Right knee sprain Qualifiers: Encounter type: initial encounter Involved ligament of knee: unspecified ligament Qualified Code(s): S83.91XA - Sprain of unspecified site of right knee, initial encounter Patient Disposition: Home, Self-Care Instructions: Knee Sprain (ED), P.R.I.C.E. Treatment (ED) Additional Instructions: The x-ray of the knee was unremarkable, you are being treated for suspect sprain. See home care instructions. The use of a compression sleeve can offer stability to the knee joint and help with the pain. They can be purchased at any pharmacy, or sporting goods store. Use the ketorolac as needed for pain, this is an anti-inflammatory take it with food. I am providing you with a contact for our orthopedic service in the event that you require their services. Prescriptions: New ketorolac 10 mg tablet 10 mg PO Q6H PRN (Reason: pain) Qty: 20 0RF Rx Instructions: maximum total duration of 5 days from all oral, intranasal, or parenteral formulations, patient received an intramuscular dose of Toradol here in the emergency room No Action amoxicillin-pot clavulanate 875-125 mg tablet 1 tab PO Q12H 10 Days Qty: 20 0RF prednisone 20 mg tablet 40 mg PO DAILY 5 Days Qty: 10 0RF naproxen 500 mg tablet 500 mg PO BID PRN (Reason: pain) 10 Days Qty: 20 0RF epinephrine [EpiPen] 0.3 mg/0.3 mL auto-injector 0.3 mg IM Q4H PRN (Reason: anaphylaxis) Qty: 2 0RF Referrals: Miki Sheikh MD [Physician, Orthopedics] Referral Note: right knee sprain Stand Alone Forms: Work/School Release Print Language: Bulgarian
[2025-07-14 05:10] VITALS: BP 118/78; PULSE 99; RESP 18; TEMP 36.6; O2SAT 98
== END 2025-07-14 05:10 | disposition home or self-care (01) ==
PROVIDERS: Emergency Provider Emergency Medicine; PCP Internal Medicine
DX: S83.91XA Sprain of unspecified site of right knee, initial encounter (principal); X50.9XXA Other and unspecified overexertion or strenuous movements or postures, initial encounter; Y93.89 Activity, other specified; Y92.89 Other specified places as the place of occurrence of the external cause; Y99.9 Unspecified external cause status
CPT/HCPCS: 73562; 96372; 99283; 99284; J1885

== ENCOUNTER → 2025-07-14 03:14 | Outpatient (BNV) | payer OTHER, SELFPAY | PROVIDERS: Emergency Provider Emergency Medicine; PCP Internal Medicine; Visit Provider Radiology Diagnostic Radiology | DX: M25.561 Pain in right knee (principal) | CPT/HCPCS: 73562 ==